=== PATIENT | female | born 1960 | race Caucasian/White ===

== ENCOUNTER 2016-06-17 09:57 | Day surgery (SDC) | payer BC ==
[2016-06-17 12:06] VITALS: RESP 20; TEMP 97.2; O2SAT 95
[2016-06-17 12:16] VITALS: BP 110/71; PULSE 75
== END 2016-06-17 12:25 | disposition home or self-care (01) ==
LOC: SURG 09:57
PROVIDERS: ATTEND Surgery
DX: Z12.11 Encounter for screening for malignant neoplasm of colon (principal); K57.30 Diverticulosis of large intestine without perforation or abscess without bleeding
CPT/HCPCS: 45378; J2001; J2704

== ENCOUNTER 2016-06-28 19:01 | Inpatient (IN) | payer BC ==
[2016-06-28] MEDS ORDERED: ALBUTEROL/IPRATROPIUM 1 VIAL SOL INH ONE (19:49)
[2016-06-28] MEDS ORDERED: ALBUTEROL/IPRATROPIUM 1 VIAL SOL ONE (19:59)
[2016-06-28 20:03] LABS: BASOPHILS % (AUTO) 1 % (0-3); EOSINOPHILS % (AUTO) 1 % (0-9); HEMATOCRIT 39 % (35-47); MEAN CORPUSCULAR HGB CONC 33.1 gm/dl (32.0-36.0); MEAN CORPUSCULAR VOLUME 88 fL (81-99); MONOCYTES % (AUTO) 7.8 % (0-12); NEUTROPHILS % (AUTO) 79.4 % (37-80)
[2016-06-28 20:07] LABS: CALCIUM 8.2 mg/dl (8.5-10.1)
[2016-06-28] MEDS ORDERED: RANITIDINE HCL 150 MG TAB PO SCH (21:00)
[2016-06-28] MEDS: SODIUM CHLORIDE 0.9% 1000ML 1,000 ML IV SCH (21:05)
[2016-06-28] MEDS ORDERED: IBUPROFEN 600 MG TAB ONE (21:07)
[2016-06-28] MEDS ORDERED: LEVOFLOXACIN 500 MG TAB ONE (21:07)
[2016-06-28] MEDS ORDERED: SOLUMEDROL 125 MG/2 ML 125 MG/2 ML PDS ONE (21:07)
[2016-06-28] MEDS: IBUPROFEN 600 MG TAB PO PRN (21:13)
[2016-06-28] MEDS: SOLUMEDROL 125 MG/2 ML 125 MG/2 ML PDS IV SCH (21:14)
[2016-06-28] MEDS: ALBUTEROL/IPRATROPIUM 1 VIAL SOL INH SCH (21:56)
[2016-06-28] MEDS: TRAZODONE HYDROCHLORIDE 50 MG TAB PO SCH (21:59)
[2016-06-28] MEDS: LEVOFLOXACIN 500 MG TAB PO SCH (22:00)
[2016-06-28] MEDS: MONTELUKAST SODIUM 10 MG TAB PO SCH (22:00)
[2016-06-28] MEDS: FAMOTIDINE 20 MG TAB PO SCH (22:03)
[2016-06-28] MEDS ORDERED: ACETAMINOPHEN 500 MG 500 MG TAB PO PRN (22:22)
[2016-06-28] MEDS ORDERED: ACETAMINOPHEN 500 MG 500 MG TAB ONE (22:46)
[2016-06-28] MEDS: DEXTROSE/SALINE 0.45/KCL 20MEQ 1,000 ML/1,000 ML SOL IV SCH (23:13)
[2016-06-29] MEDS: SODIUM CHLORIDE 0.9% 1000ML 1,000 ML IV SCH ×2 (01:46→01:47)
[2016-06-29] MEDS: ALBUTEROL/IPRATROPIUM 1 VIAL SOL INH SCH ×4 (03:45→21:19)
[2016-06-29] MEDS: SOLUMEDROL 125 MG/2 ML 125 MG/2 ML PDS IV SCH ×3 (05:27→21:48)
[2016-06-29] MEDS: IBUPROFEN 600 MG TAB PO PRN (05:30)
[2016-06-29] MEDS: DEXTROSE/SALINE 0.45/KCL 20MEQ 1,000 ML/1,000 ML SOL IV SCH (07:36)
[2016-06-29] MEDS: LEVOFLOXACIN 500 MG TAB PO SCH (09:35)
[2016-06-29] MEDS: SERTRALINE HYDROCHLORIDE 50 MG TAB PO SCH (09:36)
[2016-06-29] MEDS: SODIUM CHLORIDE 0.9% FLUSH 10 ML SOL IV SCH ×2 (12:24→21:17)
[2016-06-29] MEDS: TRAZODONE HYDROCHLORIDE 50 MG TAB PO SCH (21:18)
[2016-06-29] MEDS: MONTELUKAST SODIUM 10 MG TAB PO SCH (21:18)
[2016-06-29] MEDS: FAMOTIDINE 20 MG TAB PO SCH (21:18)
[2016-06-30] MEDS: ALBUTEROL/IPRATROPIUM 1 VIAL SOL INH SCH ×4 (03:22→20:49)
[2016-06-30] MEDS: SOLUMEDROL 125 MG/2 ML 125 MG/2 ML PDS IV SCH ×2 (03:23→05:00)
[2016-06-30] MEDS: SODIUM CHLORIDE 0.9% FLUSH 10 ML SOL IV SCH ×4 (03:23→20:55)
[2016-06-30] MEDS: IBUPROFEN 600 MG TAB PO PRN (06:49)
[2016-06-30] MEDS: SERTRALINE HYDROCHLORIDE 50 MG TAB PO SCH (08:47)
[2016-06-30] MEDS: PREDNISONE 20 MG TAB PO SCH (08:47)
[2016-06-30] MEDS: LEVOFLOXACIN 500 MG TAB PO SCH (08:48)
[2016-06-30] MEDS: FAMOTIDINE 20 MG TAB PO SCH (20:55)
[2016-06-30] MEDS: TRAZODONE HYDROCHLORIDE 50 MG TAB PO SCH (20:56)
[2016-06-30] MEDS: MONTELUKAST SODIUM 10 MG TAB PO SCH (20:56)
[2016-07-01] MEDS: ALBUTEROL/IPRATROPIUM 1 VIAL SOL INH SCH ×4 (02:52→20:05)
[2016-07-01] MEDS: SODIUM CHLORIDE 0.9% FLUSH 10 ML SOL IV SCH ×3 (03:32→20:02)
[2016-07-01 07:24] LABS: CALCIUM 8.5 mg/dl (8.5-10.1); POTASSIUM 3.8 mMol/L (3.5-5.1)
[2016-07-01] MEDS: ALBUTEROL HFA 60 PUFF/INHALER INH PRN (07:26)
[2016-07-01] MEDS: LEVOFLOXACIN 500 MG TAB PO SCH (09:13)
[2016-07-01] MEDS: SERTRALINE HYDROCHLORIDE 50 MG TAB PO SCH (09:14)
[2016-07-01] MEDS: PREDNISONE 20 MG TAB PO SCH (09:15)
[2016-07-01] MEDS: IBUPROFEN 600 MG TAB PO PRN (09:25)
[2016-07-01] MEDS: FAMOTIDINE 20 MG TAB PO SCH (20:03)
[2016-07-01] MEDS: TRAZODONE HYDROCHLORIDE 50 MG TAB PO SCH (20:03)
[2016-07-01] MEDS: MONTELUKAST SODIUM 10 MG TAB PO SCH (20:04)
[2016-07-02] MEDS: ALBUTEROL/IPRATROPIUM 1 VIAL SOL INH SCH ×2 (03:38→09:06)
[2016-07-02] MEDS: SODIUM CHLORIDE 0.9% FLUSH 10 ML SOL IV SCH ×2 (03:41→11:35)
[2016-07-02] MEDS: ALBUTEROL HFA 60 PUFF/INHALER INH PRN ×2 (07:07→11:05)
[2016-07-02 08:25] VITALS: BP 138/64; RESP 20; TEMP 97.2
[2016-07-02] MEDS: LEVOFLOXACIN 500 MG TAB PO SCH (08:25)
[2016-07-02] MEDS: SERTRALINE HYDROCHLORIDE 50 MG TAB PO SCH (08:26)
[2016-07-02] MEDS: PREDNISONE 20 MG TAB PO SCH (08:26)
[2016-07-02] MEDS: IBUPROFEN 600 MG TAB PO PRN (08:30)
[2016-07-02 09:19] VITALS: PULSE 83; O2SAT 96
[2016-07-02] MEDS ORDERED: PNEUMOCOCCAL VACCINE 0.5 ML SOL IM ONE (09:52)
[2016-07-02] MEDS ORDERED: INFLUENZA VIRUS VACCINE 0.5 ML SUS IM ONE (09:52)
== END 2016-07-02 12:35 | disposition home or self-care (01) | DRG 140 ==
LOC: ED 19:01 → UNDOADMOB 20:30 → ACUTE CARE 20:30 → UNDOADMOB 20:59 → INTOOBSV 20:59 → OBSVTOIN 20:59 → INTOOBSV 06-30 08:23 → UNDOADMOB 06-30 08:23 → ACUTE CARE 06-30 08:23 → OBSVTOIN 06-30 08:23 → UNDODISIN 07-02 12:35
PROVIDERS: ADMIT Family Medicine; ATTEND Family Medicine
DX: J44.1 Chronic obstructive pulmonary disease with (acute) exacerbation (principal); J06.9 Acute upper respiratory infection, unspecified
CPT/HCPCS: 36415; 71020; 80048; 82962; 85025; 87040; 90686; 90732; 94150; 94640; 94664; 94762; 99219; 99283; J2930; J7620; G0008

== ENCOUNTER 2016-08-17 14:18 | Inpatient (IN) | payer BC ==
[2016-08-17] MEDS: ALBUTEROL/IPRATROPIUM 1 VIAL SOL INH SCH ×3 (15:00→21:14)
[2016-08-17] MEDS: SODIUM CHLORIDE 0.9% FLUSH 10 ML SOL IV SCH ×2 (15:07→19:09)
[2016-08-17] MEDS: SOLUMEDROL 125 MG/2 ML 125 MG/2 ML PDS IV SCH (19:08)
[2016-08-17] MEDS: MONTELUKAST SODIUM 10 MG TAB PO SCH (21:05)
[2016-08-17] MEDS: TRAZODONE HYDROCHLORIDE 50 MG TAB PO SCH (21:05)
[2016-08-17] MEDS: ATORVASTATIN 10 MG TAB PO SCH (21:05)
[2016-08-17] MEDS: OMEPRAZOLE 20 MG CAPSULE PO SCH (21:09)
[2016-08-17] MEDS: IBUPROFEN 600 MG TAB PO PRN (21:25)
[2016-08-18] MEDS: SOLUMEDROL 125 MG/2 ML 125 MG/2 ML PDS IV SCH ×4 (00:24→19:09)
[2016-08-18] MEDS: SODIUM CHLORIDE 0.9% FLUSH 10 ML SOL IV SCH ×6 (00:24→23:01)
[2016-08-18] MEDS: ALBUTEROL NEB SOL 2.5MG/3ML 1 VIAL SOL NEB PRN ×3 (00:27→15:43)
[2016-08-18] MEDS: SERTRALINE HYDROCHLORIDE 50 MG TAB PO SCH (08:25)
[2016-08-18] MEDS: MULTIVITAMIN2 1 EA TAB PO SCH (08:25)
[2016-08-18] MEDS: ALBUTEROL/IPRATROPIUM 1 VIAL SOL INH SCH ×4 (08:53→21:05)
[2016-08-18] MEDS ORDERED: TIOTROPIUM BROMIDE 18 MCG CAP INH SCH (09:00)
[2016-08-18] MEDS: PANTOPRAZOLE SODIUM 40 MG ECT PO SCH ×2 (09:43→20:56)
[2016-08-18] MEDS: IBUPROFEN 600 MG TAB PO PRN ×2 (09:45→21:21)
[2016-08-18] MEDS: OMEPRAZOLE 20 MG CAPSULE PO SCH (11:45)
[2016-08-18] MEDS: MONTELUKAST SODIUM 10 MG TAB PO SCH (20:57)
[2016-08-18] MEDS: TRAZODONE HYDROCHLORIDE 50 MG TAB PO SCH (20:57)
[2016-08-18] MEDS: ATORVASTATIN 10 MG TAB PO SCH (20:57)
[2016-08-19] MEDS: SOLUMEDROL 125 MG/2 ML 125 MG/2 ML PDS IV SCH ×4 (00:24→20:57)
[2016-08-19] MEDS: SODIUM CHLORIDE 0.9% FLUSH 10 ML SOL IV SCH ×5 (00:24→23:43)
[2016-08-19] MEDS: ALBUTEROL NEB SOL 2.5MG/3ML 1 VIAL SOL NEB PRN (03:39)
[2016-08-19 07:17] LABS: BASOPHILS % (AUTO) 0 % (0-3); EOSINOPHILS % (AUTO) 0 % (0-9); HEMATOCRIT 35 % (35-47); MEAN CORPUSCULAR HGB CONC 34.9 gm/dl (32.0-36.0); MEAN CORPUSCULAR VOLUME 85 fL (81-99); MONOCYTES % (AUTO) 6.7 % (0-12); NEUTROPHILS % (AUTO) 87.4 % (37-80)
[2016-08-19 07:22] LABS: ALBUMIN 2.7 gm/dl (3.4-5.0); CALCIUM 9.2 mg/dl (8.5-10.1); POTASSIUM 4.4 mMol/L (3.5-5.1)
[2016-08-19] MEDS: IBUPROFEN 600 MG TAB PO PRN ×3 (07:30→23:30)
[2016-08-19] MEDS: ALBUTEROL/IPRATROPIUM 1 VIAL SOL INH SCH ×4 (09:02→21:01)
[2016-08-19] MEDS: SERTRALINE HYDROCHLORIDE 50 MG TAB PO SCH (09:06)
[2016-08-19] MEDS: PANTOPRAZOLE SODIUM 40 MG ECT PO SCH ×2 (09:06→20:56)
[2016-08-19] MEDS: MULTIVITAMIN2 1 EA TAB PO SCH (09:06)
[2016-08-19] MEDS: LEVOFLOXACIN 500 MG TAB PO SCH (10:43)
[2016-08-19] MEDS: DM/GUAIFENESIN SYRUP 10 ML SYRP PO PRN ×3 (10:43→23:28)
[2016-08-19] MEDS: TRAZODONE HYDROCHLORIDE 50 MG TAB PO SCH (20:56)
[2016-08-19] MEDS: MONTELUKAST SODIUM 10 MG TAB PO SCH (20:56)
[2016-08-19] MEDS: ATORVASTATIN 10 MG TAB PO SCH (20:56)
[2016-08-20] MEDS: SODIUM CHLORIDE 0.9% FLUSH 10 ML SOL IV SCH ×4 (05:47→23:02)
[2016-08-20] MEDS: DM/GUAIFENESIN SYRUP 10 ML SYRP PO PRN ×2 (07:48→18:20)
[2016-08-20] MEDS: IBUPROFEN 600 MG TAB PO PRN ×2 (07:48→18:20)
[2016-08-20] MEDS: ALBUTEROL/IPRATROPIUM 1 VIAL SOL INH SCH ×4 (08:04→20:07)
[2016-08-20] MEDS: SERTRALINE HYDROCHLORIDE 50 MG TAB PO SCH (10:00)
[2016-08-20] MEDS: MULTIVITAMIN2 1 EA TAB PO SCH (10:00)
[2016-08-20] MEDS: LEVOFLOXACIN 500 MG TAB PO SCH (10:00)
[2016-08-20] MEDS: PANTOPRAZOLE SODIUM 40 MG ECT PO SCH ×2 (10:00→20:14)
[2016-08-20] MEDS: SOLUMEDROL 125 MG/2 ML 125 MG/2 ML PDS IV SCH ×2 (10:06→21:14)
[2016-08-20] MEDS: TRAZODONE HYDROCHLORIDE 50 MG TAB PO SCH (20:13)
[2016-08-20] MEDS: MONTELUKAST SODIUM 10 MG TAB PO SCH (20:14)
[2016-08-20] MEDS: ATORVASTATIN 10 MG TAB PO SCH (20:14)
[2016-08-21] MEDS: DM/GUAIFENESIN SYRUP 10 ML SYRP PO PRN ×2 (00:02→20:41)
[2016-08-21] MEDS: SODIUM CHLORIDE 0.9% FLUSH 10 ML SOL IV SCH ×3 (05:22→13:42)
[2016-08-21] MEDS: ALBUTEROL/IPRATROPIUM 1 VIAL SOL INH SCH ×4 (08:02→20:31)
[2016-08-21] MEDS: LEVOFLOXACIN 500 MG TAB PO SCH (09:08)
[2016-08-21] MEDS: PANTOPRAZOLE SODIUM 40 MG ECT PO SCH ×2 (09:08→20:31)
[2016-08-21] MEDS: MULTIVITAMIN2 1 EA TAB PO SCH (09:09)
[2016-08-21] MEDS: SERTRALINE HYDROCHLORIDE 50 MG TAB PO SCH (09:09)
[2016-08-21] MEDS: IBUPROFEN 600 MG TAB PO PRN (09:10)
[2016-08-21] MEDS: PREDNISONE 20 MG TAB PO SCH (10:38)
[2016-08-21] MEDS: MONTELUKAST SODIUM 10 MG TAB PO SCH (20:30)
[2016-08-21] MEDS: ATORVASTATIN 10 MG TAB PO SCH (20:30)
[2016-08-21] MEDS: TRAZODONE HYDROCHLORIDE 50 MG TAB PO SCH (20:30)
[2016-08-22] MEDS: SODIUM CHLORIDE 0.9% FLUSH 10 ML SOL IV SCH ×2 (00:01→05:38)
[2016-08-22] MEDS: ALBUTEROL NEB SOL 2.5MG/3ML 1 VIAL SOL NEB PRN (05:04)
[2016-08-22 07:56] VITALS: BP 143/81; TEMP 97.3
[2016-08-22] MEDS: IBUPROFEN 600 MG TAB PO PRN (07:58)
[2016-08-22] MEDS: ALBUTEROL/IPRATROPIUM 1 VIAL SOL INH SCH (08:02)
[2016-08-22] MEDS: LEVOFLOXACIN 500 MG TAB PO SCH (08:03)
[2016-08-22] MEDS: PREDNISONE 20 MG TAB PO SCH (08:03)
[2016-08-22] MEDS: PANTOPRAZOLE SODIUM 40 MG ECT PO SCH (08:03)
[2016-08-22] MEDS: SERTRALINE HYDROCHLORIDE 50 MG TAB PO SCH (08:04)
[2016-08-22] MEDS: MULTIVITAMIN2 1 EA TAB PO SCH (08:04)
[2016-08-22 10:09] VITALS: PULSE 85; RESP 22; O2SAT 95
== END 2016-08-22 13:10 | disposition home or self-care (01) | DRG 140 ==
LOC: ACUTE CARE 14:18
PROVIDERS: ADMIT Family Medicine; ATTEND Family Medicine
DX: J44.1 Chronic obstructive pulmonary disease with (acute) exacerbation (principal); Z87.891 Personal history of nicotine dependence
CPT/HCPCS: 36415; 80053; 85025; 87070; 87205; 94150; 94640; 94760; 94761; 99238; J2930; J7603; J7620

== ENCOUNTER 2016-11-25 18:27 | Emergency (ER) | payer OTHER, BC ==
[2016-11-25] MEDS ORDERED: SODIUM CHLORIDE 0.9% 1000ML 1,000 ML IV ONE (18:36)
[2016-11-25 19:03] LABS: BASOPHILS % (AUTO) 1 % (0-3); EOSINOPHILS % (AUTO) 2 % (0-9); HEMATOCRIT 39 % (35-47); MEAN CORPUSCULAR VOLUME 87 fL (81-99); MONOCYTES % (AUTO) 5.5 % (0-12); NEUTROPHILS % (AUTO) 71.3 % (37-80)
[2016-11-25 19:17] VITALS: TEMP 98.8
[2016-11-25 19:30] LABS: ALBUMIN 3.3 gm/dl (3.4-5.0); ALT 24 IU/L (14-63); CALCIUM 8.5 mg/dl (8.5-10.1); GLOM FILT RATE 88 mL/min (>60); POTASSIUM 4.1 mMol/L (3.5-5.1); SODIUM 143 mMol/L (136-145)
[2016-11-25 20:26] LABS: APPEARANCE,URINE Clear; BILIRUBIN,URINE NEGATIVE (NEGATIVE); COLOR,URINE Yellow; GLUCOSE, URINE (UA) NEGATIVE (NEGATIVE); KETONES,URINE NEGATIVE (NEGATIVE); LEUKOCYTE ESTERASE ,URINE NEGATIVE (NEGATIVE); NITRATE,URINE NEGATIVE (NEGATIVE); OCCULT BLOOD,URINE NEGATIVE (NEG-TRACE); UROBILINOGEN,URINE 0.2 (0.2-1.0 EU)
[2016-11-25 20:41] LABS: RBC,URINE NEG (0-3AV/HPF); WBC,URINE 0-1 (0-5AV/HPF)
[2016-11-25 21:31] VITALS: BP 126/66; PULSE 78; RESP 13; O2SAT 91
== END 2016-11-25 21:33 | disposition home or self-care (01) | DRG 312 ==
LOC: ED 18:27
DX: R55 Syncope and collapse (principal); R35.0 Frequency of micturition
CPT/HCPCS: 36415; 80053; 81001; 84484; 85025; 93005; 99285

== ENCOUNTER 2017-03-18 15:44 | Inpatient (IN) | payer BC ==
[2017-03-18] MEDS ORDERED: ALBUTEROL/IPRATROPIUM 1 VIAL SOL INH ONE ×2 (16:34→16:35)
[2017-03-18] MEDS ORDERED: ALBUTEROL/IPRATROPIUM 1 VIAL SOL ONE ×2 (16:35→17:37)
[2017-03-18] MEDS ORDERED: SOLUMEDROL 125 MG/2 ML 125 MG/2 ML PDS IV ONE (16:36)
[2017-03-18] MEDS ORDERED: GUAIFENESIN 200 MG/10 ML SOL PO ONE (16:38)
[2017-03-18] MEDS ORDERED: AZITHROMYCIN 500 MG PDS 500 MG in SODIUM CHLORIDE 0.9% 500 ML 500 ML IV SCH (16:45)
[2017-03-18 16:51] LABS: BASOPHILS % (AUTO) 1 % (0-3); EOSINOPHILS % (AUTO) 4 % (0-9); HEMATOCRIT 39 % (35-47); MEAN CORPUSCULAR HGB CONC 32.9 gm/dl (32.0-36.0); MEAN CORPUSCULAR VOLUME 89 fL (81-99); MONOCYTES % (AUTO) 5.4 % (0-12)
[2017-03-18] MEDS ORDERED: GUAIFENESIN 200 MG/10 ML SOL ONE (16:54)
[2017-03-18] MEDS ORDERED: SOLUMEDROL 125 MG/2 ML 125 MG/2 ML PDS ONE (16:54)
[2017-03-18] MEDS ORDERED: AZITHROMYCIN 500 MG PDS IV ONE (16:59)
[2017-03-18] MEDS ORDERED: ALBUTEROL NEB SOL 2.5MG/3ML 1 VIAL SOL NEB PRN (19:54)
[2017-03-18] MEDS ORDERED: ACETAMINOPHEN 325 MG PO PRN (19:55)
[2017-03-18] MEDS ORDERED: CEFUROXIME 250 MG/5 ML PDR PO SCH (21:00)
[2017-03-18] MEDS: SOLUMEDROL 125 MG/2 ML 125 MG/2 ML PDS IV SCH (21:22)
[2017-03-18] MEDS: TRAZODONE HYDROCHLORIDE 50 MG TAB PO SCH (21:24)
[2017-03-18] MEDS: ATORVASTATIN 10 MG TAB PO SCH (21:28)
[2017-03-18] MEDS: MONTELUKAST SODIUM 10 MG TAB PO SCH (21:29)
[2017-03-18] MEDS: ALBUTEROL/IPRATROPIUM 1 VIAL SOL INH SCH (21:32)
[2017-03-18] MEDS: IBUPROFEN 600 MG TAB PO PRN (21:35)
[2017-03-19] MEDS: ALBUTEROL/IPRATROPIUM 1 VIAL SOL INH SCH ×4 (02:32→20:35)
[2017-03-19] MEDS: SODIUM CHLORIDE 0.9% FLUSH 10 ML SOL IV SCH ×5 (02:35→20:44)
[2017-03-19] MEDS: SOLUMEDROL 125 MG/2 ML 125 MG/2 ML PDS IV SCH ×4 (02:35→20:33)
[2017-03-19] MEDS: IBUPROFEN 600 MG TAB PO PRN ×3 (04:27→17:17)
[2017-03-19] MEDS: AZITHROMYCIN 250 MG TAB PO SCH (08:38)
[2017-03-19] MEDS: FUROSEMIDE 20 MG TAB PO SCH (08:38)
[2017-03-19] MEDS: SERTRALINE HYDROCHLORIDE 50 MG TAB PO SCH (08:39)
[2017-03-19] MEDS: ENOXAPARIN 40 MG SOL SC SCH (08:39)
[2017-03-19] MEDS: AMLODIPINE 5 MG TAB PO SCH (08:39)
[2017-03-19] MEDS ORDERED: OMEPRAZOLE 20 MG CAPSULE PO SCH (09:00)
[2017-03-19] MEDS: PANTOPRAZOLE SODIUM 40 MG ECT PO SCH (09:43)
[2017-03-19] MEDS: CEFPROZIL 250 MG/5 ML SUSP.RECON PO SCH ×2 (09:48→20:33)
[2017-03-19] MEDS ORDERED: SODIUM CHLORIDE 0.9% FLUSH 10 ML SOL IV PRN (18:33)
[2017-03-19] MEDS: MONTELUKAST SODIUM 10 MG TAB PO SCH (20:36)
[2017-03-19] MEDS: TRAZODONE HYDROCHLORIDE 50 MG TAB PO SCH (20:37)
[2017-03-19] MEDS: ATORVASTATIN 10 MG TAB PO SCH (20:38)
[2017-03-20] MEDS: SODIUM CHLORIDE 0.9% FLUSH 10 ML SOL IV SCH ×3 (01:49→13:22)
[2017-03-20] MEDS: SOLUMEDROL 125 MG/2 ML 125 MG/2 ML PDS IV SCH ×2 (01:49→09:57)
[2017-03-20] MEDS: ALBUTEROL/IPRATROPIUM 1 VIAL SOL INH SCH ×3 (02:08→15:59)
[2017-03-20] MEDS: IBUPROFEN 600 MG TAB PO PRN (05:38)
[2017-03-20 07:31] LABS: BASOPHILS % (AUTO) 0 % (0-3); EOSINOPHILS % (AUTO) 0 % (0-9); HEMATOCRIT 40 % (35-47); MEAN CORPUSCULAR HGB CONC 32.4 gm/dl (32.0-36.0); MEAN CORPUSCULAR VOLUME 90 fL (81-99); MONOCYTES % (AUTO) 2.1 % (0-12); NEUTROPHILS % (AUTO) 94.6 % (37-80)
[2017-03-20 07:38] LABS: CALCIUM 8.7 mg/dl (8.5-10.1); POTASSIUM 4.3 mMol/L (3.5-5.1)
[2017-03-20] MEDS: FUROSEMIDE 20 MG TAB PO SCH (09:35)
[2017-03-20] MEDS: AMLODIPINE 5 MG TAB PO SCH (09:36)
[2017-03-20] MEDS: AZITHROMYCIN 250 MG TAB PO SCH (09:37)
[2017-03-20] MEDS: PANTOPRAZOLE SODIUM 40 MG ECT PO SCH (09:37)
[2017-03-20] MEDS: SERTRALINE HYDROCHLORIDE 50 MG TAB PO SCH (09:39)
[2017-03-20] MEDS ORDERED: ALUMINUM/MAGNESIUM 30 ML SUS PO PRN (09:43)
[2017-03-20] MEDS: ENOXAPARIN 40 MG SOL SC SCH (09:54)
[2017-03-20] MEDS: CEFPROZIL 250 MG/5 ML SUSP.RECON PO SCH (09:56)
[2017-03-20 15:59] VITALS: RESP 21
[2017-03-20 16:53] VITALS: PULSE 82; O2SAT 97
[2017-03-20 17:02] VITALS: BP 155/78; TEMP 97.7
[2017-03-21] MEDS ORDERED: PREDNISONE 20 MG TAB PO SCH (13:00)
== END 2017-03-20 16:30 | disposition home or self-care (01) | DRG 140 ==
LOC: ED 15:44 → ACUTE CARE 18:57 → UNDOADMIN 18:57 → ACUTE CARE 19:10
PROVIDERS: ADMIT Family Medicine; ATTEND Family Medicine
DX: J44.1 Chronic obstructive pulmonary disease with (acute) exacerbation (principal); J18.9 Pneumonia, unspecified organism; J44.0 Chronic obstructive pulmonary disease with (acute) lower respiratory infection; I10 Essential (primary) hypertension; G47.33 Obstructive sleep apnea (adult) (pediatric)
CPT/HCPCS: 36415; 71020; 80048; 85025; 87804; 94640; 94664; 99285; J0456; J1650; J2930; J7603; J7620

== ENCOUNTER 2017-05-17 12:40 | Inpatient (IN) | payer BC ==
[2017-05-17] MEDS ORDERED: DEXAMETHASONE 20 MG/5 ML (4 MG/ML SOL) IV ONE (12:49)
[2017-05-17] MEDS ORDERED: DEXAMETHASONE 20 MG/5 ML (4 MG/ML SOL) ONE (12:53)
[2017-05-17] MEDS ORDERED: ALBUTEROL/IPRATROPIUM 1 VIAL SOL INH ONE (12:58)
[2017-05-17] MEDS ORDERED: ALBUTEROL/IPRATROPIUM 1 VIAL SOL ONE (12:58)
[2017-05-17 13:07] LABS: ABG PH 7.41 (7.35-7.45)
[2017-05-17 13:10] LABS: BASOPHILS % (AUTO) 2 % (0-3); EOSINOPHILS % (AUTO) 3 % (0-9); HEMATOCRIT 36 % (35-47); MEAN CORPUSCULAR HGB CONC 34.4 gm/dl (32.0-36.0); MEAN CORPUSCULAR VOLUME 86 fL (81-99); MONOCYTES % (AUTO) 4.7 % (0-12); NEUTROPHILS % (AUTO) 70.7 % (37-80)
[2017-05-17 13:28] LABS: ALBUMIN 3.4 gm/dl (3.4-5.0); CALCIUM 8.4 mg/dl (8.5-10.1); POTASSIUM 3.7 mMol/L (3.5-5.1)
[2017-05-17] MEDS: ALBUTEROL/IPRATROPIUM 1 VIAL SOL INH SCH ×2 (17:30→23:02)
[2017-05-17] MEDS ORDERED: AZITHROMYCIN 250 MG TAB PO ONE (18:25)
[2017-05-17] MEDS ORDERED: ALBUTEROL/IPRATROPIUM 1 VIAL SOL INH SCH (18:30)
[2017-05-17] MEDS: SOLUMEDROL 125 MG/2 ML 125 MG/2 ML PDS IV SCH (18:56)
[2017-05-17] MEDS: ALBUTEROL NEB SOL 2.5MG/3ML 1 VIAL SOL NEB SCH ×2 (18:56→21:52)
[2017-05-17] MEDS ORDERED: Non-Formulary Medication MISC (Budesonide/Formoterol 160/4.5 2 PUFF) INH SCH (21:00)
[2017-05-17] MEDS: TRAZODONE HYDROCHLORIDE 50 MG TAB PO SCH (21:49)
[2017-05-17] MEDS: ATORVASTATIN 10 MG TAB PO SCH (21:49)
[2017-05-17] MEDS: POTASSIUM CHLORIDE 10 MEQ TER PO SCH (21:49)
[2017-05-17] MEDS: HYDRALAZINE HYDROCHLORIDE 10 MG TAB PO SCH (21:49)
[2017-05-18] MEDS: SOLUMEDROL 125 MG/2 ML 125 MG/2 ML PDS IV SCH ×2 (00:31→06:14)
[2017-05-18] MEDS: ALBUTEROL NEB SOL 2.5MG/3ML 1 VIAL SOL NEB SCH (03:07)
[2017-05-18] MEDS: ALBUTEROL/IPRATROPIUM 1 VIAL SOL INH SCH ×4 (05:53→22:49)
[2017-05-18 07:49] LABS: BASOPHILS % (AUTO) 0 % (0-3); EOSINOPHILS % (AUTO) 0 % (0-9); HEMATOCRIT 36 % (35-47); MEAN CORPUSCULAR HGB CONC 33.1 gm/dl (32.0-36.0); MEAN CORPUSCULAR VOLUME 86 fL (81-99); MONOCYTES % (AUTO) 0.8 % (0-12); NEUTROPHILS % (AUTO) 91.4 % (37-80)
[2017-05-18 07:54] LABS: CALCIUM 8.4 mg/dl (8.5-10.1); POTASSIUM 4.2 mMol/L (3.5-5.1)
[2017-05-18] MEDS: POTASSIUM CHLORIDE 10 MEQ TER PO SCH ×2 (08:55→20:38)
[2017-05-18] MEDS: HYDRALAZINE HYDROCHLORIDE 10 MG TAB PO SCH ×2 (08:55→20:37)
[2017-05-18] MEDS: SERTRALINE HYDROCHLORIDE 50 MG TAB PO SCH (08:56)
[2017-05-18] MEDS: AZITHROMYCIN 250 MG TAB PO SCH ×2 (08:56→20:38)
[2017-05-18] MEDS: MULTIVITAMIN2 1 EA TAB PO SCH (08:56)
[2017-05-18] MEDS: MONTELUKAST SODIUM 10 MG TAB PO SCH (08:56)
[2017-05-18] MEDS: ENOXAPARIN 40 MG SOL SC SCH (08:57)
[2017-05-18] MEDS: TIOTROPIUM BROMIDE 18 MCG CAP INH SCH (08:58)
[2017-05-18] MEDS: FUROSEMIDE 40 MG TAB PO SCH ×2 (08:59→11:52)
[2017-05-18] MEDS ORDERED: FUROSEMIDE 20 MG TAB PO SCH (09:00)
[2017-05-18] MEDS: BUDESONIDE/FORMOTEROL 160/4.5 AER INH SCH ×2 (09:00→20:50)
[2017-05-18] MEDS ORDERED: OMEPRAZOLE 20 MG CAPSULE PO SCH (09:00)
[2017-05-18] MEDS: PANTOPRAZOLE SODIUM 40 MG ECT PO SCH (09:04)
[2017-05-18] MEDS: PREDNISONE 20 MG TAB PO SCH (09:04)
[2017-05-18] MEDS: ACETAMINOPHEN 325 MG PO PRN ×2 (10:20→20:57)
[2017-05-18] MEDS: NOVOLOG FLEXPEN SC SCH ×3 (11:59→20:35)
[2017-05-18] MEDS: ALBUTEROL NEB SOL 2.5MG/3ML 1 VIAL SOL NEB PRN (14:29)
[2017-05-18] MEDS: TRAZODONE HYDROCHLORIDE 50 MG TAB PO SCH (20:37)
[2017-05-18] MEDS: ATORVASTATIN 10 MG TAB PO SCH (20:40)
[2017-05-19] MEDS: ALBUTEROL/IPRATROPIUM 1 VIAL SOL INH SCH ×2 (05:38→11:38)
[2017-05-19] MEDS: NOVOLOG FLEXPEN SC SCH ×2 (07:34→12:04)
[2017-05-19 07:38] LABS: BASOPHILS % (AUTO) 0 % (0-3); EOSINOPHILS % (AUTO) 0 % (0-9); HEMATOCRIT 35 % (35-47); MEAN CORPUSCULAR HGB CONC 34.3 gm/dl (32.0-36.0); MEAN CORPUSCULAR VOLUME 86 fL (81-99); MONOCYTES % (AUTO) 6.3 % (0-12); NEUTROPHILS % (AUTO) 81.2 % (37-80)
[2017-05-19 07:39] LABS: CALCIUM 8.5 mg/dl (8.5-10.1)
[2017-05-19 08:00] VITALS: BP 152/68; TEMP 96.8
[2017-05-19] MEDS: POTASSIUM CHLORIDE 10 MEQ TER PO SCH (08:17)
[2017-05-19] MEDS: HYDRALAZINE HYDROCHLORIDE 10 MG TAB PO SCH (08:17)
[2017-05-19] MEDS: FUROSEMIDE 40 MG TAB PO SCH ×2 (08:18→11:43)
[2017-05-19] MEDS: PREDNISONE 20 MG TAB PO SCH (08:18)
[2017-05-19] MEDS: PANTOPRAZOLE SODIUM 40 MG ECT PO SCH (08:20)
[2017-05-19] MEDS: MONTELUKAST SODIUM 10 MG TAB PO SCH (08:20)
[2017-05-19] MEDS: TIOTROPIUM BROMIDE 18 MCG CAP INH SCH (08:21)
[2017-05-19] MEDS: AZITHROMYCIN 250 MG TAB PO SCH (08:22)
[2017-05-19] MEDS: MULTIVITAMIN2 1 EA TAB PO SCH (08:22)
[2017-05-19] MEDS: BUDESONIDE/FORMOTEROL 160/4.5 AER INH SCH (08:22)
[2017-05-19] MEDS: SERTRALINE HYDROCHLORIDE 50 MG TAB PO SCH (08:23)
[2017-05-19] MEDS: ENOXAPARIN 40 MG SOL SC SCH (08:36)
[2017-05-19] MEDS: ALBUTEROL NEB SOL 2.5MG/3ML 1 VIAL SOL NEB PRN (09:20)
[2017-05-19 13:17] VITALS: PULSE 85; RESP 18; O2SAT 95
== END 2017-05-19 13:10 | disposition home or self-care (01) | DRG 140 ==
LOC: ED 12:40 → ACUTE CARE 14:48 → UNDOADMIN 14:48 → ACUTE CARE 15:00
PROVIDERS: ADMIT Family Medicine; ATTEND Family Medicine
DX: J44.1 Chronic obstructive pulmonary disease with (acute) exacerbation (principal); J45.41 Moderate persistent asthma with (acute) exacerbation; I10 Essential (primary) hypertension; G47.33 Obstructive sleep apnea (adult) (pediatric); E66.01 Morbid (severe) obesity due to excess calories; Z68.43 Body mass index [BMI] 50.0-59.9, adult; R60.0 Localized edema
CPT/HCPCS: 36415; 36600; 71046; 71250; 80048; 80053; 82803; 82962; 85025; 87804; 93306; 94150; 99284; J1100; J1650; J2930; J7603; J7620; A9270; A9270-GY; J1815

== ENCOUNTER 2017-08-29 06:19 | Emergency (ER) | payer BC ==
[2017-08-29 06:34] VITALS: RESP 22
[2017-08-29] MEDS ORDERED: KETOROLAC TROMETHAMINE 30 MG/ML SOL IM ONE (08:15)
[2017-08-29] MEDS ORDERED: KETOROLAC TROMETHAMINE 30 MG/ML SOL ONE (08:16)
[2017-08-29 08:38] VITALS: BP 160/70; PULSE 79; TEMP 97.6; O2SAT 90
== END 2017-08-29 08:27 | disposition home or self-care (01) ==
LOC: ED 06:19
DX: S22.31XA Fracture of one rib, right side, initial encounter for closed fracture (principal); W01.0XXA Fall on same level from slipping, tripping and stumbling without subsequent striking against object, initial encounter; R04.0 Epistaxis
CPT/HCPCS: 71101; 96372; 99283; J1885

== ENCOUNTER 2018-01-24 13:56 | Inpatient (IN) | payer BC ==
[2018-01-24] MEDS ORDERED: ALBUTEROL/IPRATROPIUM 1 VIAL SOL INH ONE (14:23)
[2018-01-24] MEDS ORDERED: SODIUM CHLORIDE 0.9% 1000ML 1,000 ML IV ONE (14:26)
[2018-01-24] MEDS ORDERED: SOLUMEDROL 125 MG/2 ML 125 MG/2 ML PDS IV ONE (14:27)
[2018-01-24] MEDS ORDERED: ALBUTEROL/IPRATROPIUM 1 VIAL SOL ONE (14:51)
[2018-01-24 14:58] LABS: BASOPHILS % (AUTO) 1 % (0-3); EOSINOPHILS % (AUTO) 2 % (0-9); HEMATOCRIT 37 % (35-47); HEMOGLOBIN 11.7 gm/dl (12.0-15.5); LYMPHOCYTES % (AUTO) 16.8 % (10-50); MEAN CORPUSCULAR HEMOGLOBIN 27.5 pg (27.0-32.0); MEAN CORPUSCULAR HGB CONC 31.3 gm/dl (32.0-36.0); MEAN CORPUSCULAR VOLUME 88 fL (81-99); MONOCYTES % (AUTO) 5.3 % (0-12); NEUTROPHILS % (AUTO) 74.3 % (37-80)
[2018-01-24] MEDS ORDERED: SOLUMEDROL 125 MG/2 ML 125 MG/2 ML PDS ONE (15:01)
[2018-01-24 15:07] LABS: ALBUMIN 3.1 gm/dl (3.4-5.0); BILIRUBIN,TOTAL 0.5 mg/dl (0.2-1.0); CALCIUM 8.4 mg/dl (8.5-10.1); CARBON DIOXIDE 32.9 mEq/L (21-32); CREATININE 0.73 mg/dl (0.60-1.00); POTASSIUM 3.4 mMol/L (3.5-5.1); TOTAL PROTEIN 6.8 gm/dl (6.4-8.2)
[2018-01-24 15:14] LABS: LACTIC ACID 0.8 mMol/L (0.0-2.0)
[2018-01-24] MEDS ORDERED: ALBUTEROL NEB SOL 2.5MG/3ML 1 VIAL SOL ONE (17:21)
[2018-01-24] MEDS ORDERED: ALBUTEROL NEB SOL 2.5MG/3ML 1 VIAL SOL NEB ONE (17:30)
[2018-01-24] MEDS ORDERED: AZITHROMYCIN 500 MG PDS IV ONE ×2 (18:04→18:35)
[2018-01-24] MEDS ORDERED: POTASSIUM CHLORIDE 10 MEQ TER PO ONE (18:08)
[2018-01-24] MEDS ORDERED: POTASSIUM CHLORIDE 10 MEQ TER ONE (18:49)
[2018-01-24] MEDS ORDERED: ALBUTEROL NEB SOL 2.5MG/3ML 1 VIAL SOL NEB SCH (20:30)
[2018-01-24] MEDS: SODIUM CHLORIDE 0.9% FLUSH 10 ML SOL IV SCH ×2 (21:00→23:30)
[2018-01-24] MEDS ORDERED: BUDESONIDE INH SCH (21:00)
[2018-01-24] MEDS: ALBUTEROL/IPRATROPIUM 1 VIAL SOL INH SCH (21:02)
[2018-01-24] MEDS: HYDRALAZINE HYDROCHLORIDE 10 MG TAB PO SCH (21:57)
[2018-01-24] MEDS: ATORVASTATIN 10 MG TAB PO SCH (21:59)
[2018-01-24] MEDS: TRAZODONE HYDROCHLORIDE 50 MG TAB PO SCH (21:59)
[2018-01-24] MEDS: MONTELUKAST SODIUM 10 MG TAB PO SCH (22:00)
[2018-01-24] MEDS: BUDESONIDE 0.5 MG/2 ML AMPUL.NEB INH SCH (22:11)
[2018-01-24] MEDS: ALBUTEROL NEB SOL 2.5MG/3ML 1 VIAL SOL NEB PRN (22:40)
[2018-01-24] MEDS: SOLUMEDROL 125 MG/2 ML 125 MG/2 ML PDS IV SCH (23:06)
[2018-01-25] MEDS ORDERED: PATIENT EDUCATION 1 MISC PRN (00:39)
[2018-01-25] MEDS: BUDESONIDE 0.5 MG/2 ML AMPUL.NEB INH SCH ×3 (00:50→20:49)
[2018-01-25] MEDS: ALBUTEROL/IPRATROPIUM 1 VIAL SOL INH SCH ×4 (03:17→20:48)
[2018-01-25] MEDS: SODIUM CHLORIDE 0.9% FLUSH 10 ML SOL IV SCH ×7 (03:32→17:13)
[2018-01-25] MEDS: SOLUMEDROL 125 MG/2 ML 125 MG/2 ML PDS IV SCH ×4 (05:22→22:56)
[2018-01-25] MEDS ORDERED: POTASSIUM CHLORIDE 10 MEQ TER PO ONE ×3 (05:30→20:29)
[2018-01-25 07:46] LABS: CALCIUM 8.5 mg/dl (8.5-10.1); CARBON DIOXIDE 29.7 mEq/L (21-32); CREATININE 0.76 mg/dl (0.60-1.00); POTASSIUM 3.5 mMol/L (3.5-5.1)
[2018-01-25 08:15] LABS: BASOPHILS % (AUTO) 0 % (0-3); EOSINOPHILS % (AUTO) 0 % (0-9); HEMATOCRIT 37 % (35-47); HEMOGLOBIN 11.7 gm/dl (12.0-15.5); LYMPHOCYTES % (AUTO) 7.1 % (10-50); MEAN CORPUSCULAR HEMOGLOBIN 27.9 pg (27.0-32.0); MEAN CORPUSCULAR HGB CONC 31.7 gm/dl (32.0-36.0); MEAN CORPUSCULAR VOLUME 88 fL (81-99); MONOCYTES % (AUTO) 0.5 % (0-12); NEUTROPHILS % (AUTO) 92.1 % (37-80)
[2018-01-25] MEDS ORDERED: FUROSEMIDE 40 MG TAB PO ONE (08:32)
[2018-01-25] MEDS ORDERED: GLYCERIN NAS PRN (08:33)
[2018-01-25] MEDS ORDERED: ALOE VERA NAS PRN (08:33)
[2018-01-25] MEDS: HYDRALAZINE HYDROCHLORIDE 10 MG TAB PO SCH ×2 (08:57→20:49)
[2018-01-25] MEDS: LOSARTAN POTASSIUM 50 MG TAB PO SCH (08:59)
[2018-01-25] MEDS: SERTRALINE HYDROCHLORIDE 50 MG TAB PO SCH (09:00)
[2018-01-25] MEDS ORDERED: OMEPRAZOLE 20 MG CAPSULE PO SCH (09:00)
[2018-01-25] MEDS ORDERED: FUROSEMIDE 40 MG SOL IV SCH (09:00)
[2018-01-25] MEDS ORDERED: FUROSEMIDE 20 MG TAB PO SCH (09:00)
[2018-01-25] MEDS: AZITHROMYCIN 250 MG TAB PO SCH (09:43)
[2018-01-25] MEDS: PANTOPRAZOLE SODIUM 40 MG ECT PO SCH (09:44)
[2018-01-25] MEDS: FUROSEMIDE 40 MG SOL IV SCH ×2 (09:44→13:37)
[2018-01-25] MEDS: IBUPROFEN 600 MG TAB PO PRN ×2 (13:26→21:37)
[2018-01-25 16:28] LABS: CALCIUM 8.6 mg/dl (8.5-10.1); CARBON DIOXIDE 33.2 mEq/L (21-32); CREATININE 0.84 mg/dl (0.60-1.00); POTASSIUM 3.6 mMol/L (3.5-5.1)
[2018-01-25] MEDS ORDERED: FUROSEMIDE 20mg SOL IV ONE (16:55)
[2018-01-25] MEDS ORDERED: POTASSIUM CHLORIDE 10 MEQ TER PO SCH (17:00)
[2018-01-25] MEDS: TRAZODONE HYDROCHLORIDE 50 MG TAB PO SCH (20:48)
[2018-01-25] MEDS: ATORVASTATIN 10 MG TAB PO SCH (20:49)
[2018-01-25] MEDS: MONTELUKAST SODIUM 10 MG TAB PO SCH (20:50)
[2018-01-25] MEDS ORDERED: FUROSEMIDE 20mg SOL IV SCH (21:00)
[2018-01-26] MEDS: SODIUM CHLORIDE 0.9% FLUSH 10 ML SOL IV SCH ×3 (02:14→15:13)
[2018-01-26] MEDS: ALBUTEROL/IPRATROPIUM 1 VIAL SOL INH SCH ×5 (02:14→20:36)
[2018-01-26] MEDS: SOLUMEDROL 125 MG/2 ML 125 MG/2 ML PDS IV SCH (04:59)
[2018-01-26] MEDS: PANTOPRAZOLE SODIUM 40 MG ECT PO SCH (06:32)
[2018-01-26 07:21] LABS: CALCIUM 8.7 mg/dl (8.5-10.1); CREATININE 0.87 mg/dl (0.60-1.00)
[2018-01-26 07:26] LABS: CARBON DIOXIDE 31.4 mEq/L (21-32)
[2018-01-26 07:31] LABS: BASOPHILS % (AUTO) 0 % (0-3); EOSINOPHILS % (AUTO) 0 % (0-9); HEMATOCRIT 38 % (35-47); LYMPHOCYTES % (AUTO) 4.5 % (10-50); MEAN CORPUSCULAR HEMOGLOBIN 27.9 pg (27.0-32.0); MEAN CORPUSCULAR HGB CONC 31.8 gm/dl (32.0-36.0); MEAN CORPUSCULAR VOLUME 88 fL (81-99); MONOCYTES % (AUTO) 1.7 % (0-12); NEUTROPHILS % (AUTO) 93.5 % (37-80)
[2018-01-26] MEDS: BUDESONIDE 0.5 MG/2 ML AMPUL.NEB INH SCH ×2 (08:03→20:42)
[2018-01-26] MEDS: HYDRALAZINE HYDROCHLORIDE 10 MG TAB PO SCH ×2 (09:12→20:42)
[2018-01-26] MEDS: IBUPROFEN 600 MG TAB PO PRN ×2 (09:12→17:48)
[2018-01-26] MEDS: SERTRALINE HYDROCHLORIDE 50 MG TAB PO SCH (09:15)
[2018-01-26] MEDS: LOSARTAN POTASSIUM 50 MG TAB PO SCH (09:15)
[2018-01-26] MEDS ORDERED: FUROSEMIDE 40 MG TAB ONE (09:46)
[2018-01-26] MEDS: PREDNISONE 20 MG TAB PO SCH (10:50)
[2018-01-26] MEDS: FUROSEMIDE 40 MG TAB PO SCH ×2 (10:50→14:25)
[2018-01-26] MEDS: AZITHROMYCIN 200 MG/5 ML BOTTLE PO SCH (10:50)
[2018-01-26] MEDS: SALINE SPRAY NAS PRN ×2 (14:25→17:48)
[2018-01-26] MEDS: ATORVASTATIN 10 MG TAB PO SCH (20:43)
[2018-01-26] MEDS: TRAZODONE HYDROCHLORIDE 50 MG TAB PO SCH (20:43)
[2018-01-26] MEDS: MONTELUKAST SODIUM 10 MG TAB PO SCH (20:44)
[2018-01-27] MEDS: ALBUTEROL/IPRATROPIUM 1 VIAL SOL INH SCH ×5 (02:14→20:45)
[2018-01-27] MEDS: AZITHROMYCIN 250 MG TAB PO SCH (02:35)
[2018-01-27] MEDS: SODIUM CHLORIDE 0.9% FLUSH 10 ML SOL IV SCH ×4 (03:07→22:48)
[2018-01-27] MEDS: PANTOPRAZOLE SODIUM 40 MG ECT PO SCH (07:48)
[2018-01-27] MEDS: BUDESONIDE 0.5 MG/2 ML AMPUL.NEB INH SCH ×2 (08:16→20:45)
[2018-01-27] MEDS: LOSARTAN POTASSIUM 50 MG TAB PO SCH (09:49)
[2018-01-27] MEDS: HYDRALAZINE HYDROCHLORIDE 10 MG TAB PO SCH ×2 (09:49→20:41)
[2018-01-27] MEDS: FUROSEMIDE 40 MG TAB PO SCH ×2 (09:50→13:57)
[2018-01-27] MEDS: PREDNISONE 20 MG TAB PO SCH (09:50)
[2018-01-27] MEDS: SERTRALINE HYDROCHLORIDE 50 MG TAB PO SCH (09:51)
[2018-01-27] MEDS: AZITHROMYCIN 200 MG/5 ML BOTTLE PO SCH (09:54)
[2018-01-27] MEDS: SALINE SPRAY NAS PRN ×2 (09:55→20:49)
[2018-01-27 13:49] LABS: CALCIUM 8.7 mg/dl (8.5-10.1); CARBON DIOXIDE 31.2 mEq/L (21-32); CREATININE 0.86 mg/dl (0.60-1.00); POTASSIUM 3.6 mMol/L (3.5-5.1)
[2018-01-27] MEDS: MONTELUKAST SODIUM 10 MG TAB PO SCH (20:41)
[2018-01-27] MEDS: TRAZODONE HYDROCHLORIDE 50 MG TAB PO SCH (20:41)
[2018-01-27] MEDS: ATORVASTATIN 10 MG TAB PO SCH (20:41)
[2018-01-27] MEDS: IBUPROFEN 600 MG TAB PO PRN (20:55)
[2018-01-28] MEDS: ALBUTEROL/IPRATROPIUM 1 VIAL SOL INH SCH ×4 (03:19→21:19)
[2018-01-28] MEDS: PANTOPRAZOLE SODIUM 40 MG ECT PO SCH (06:05)
[2018-01-28] MEDS: SODIUM CHLORIDE 0.9% FLUSH 10 ML SOL IV SCH ×3 (06:15→22:59)
[2018-01-28 07:19] LABS: CALCIUM 8.6 mg/dl (8.5-10.1); CREATININE 0.8 mg/dl (0.60-1.00); POTASSIUM 3.4 mMol/L (3.5-5.1)
[2018-01-28 07:20] LABS: CARBON DIOXIDE 35.7 mEq/L (21-32)
[2018-01-28 07:21] LABS: BASOPHILS % (AUTO) 1 % (0-3); EOSINOPHILS % (AUTO) 1 % (0-9); HEMATOCRIT 39 % (35-47); HEMOGLOBIN 12.2 gm/dl (12.0-15.5); LYMPHOCYTES % (AUTO) 20.5 % (10-50); MEAN CORPUSCULAR HEMOGLOBIN 27.4 pg (27.0-32.0); MEAN CORPUSCULAR HGB CONC 31.2 gm/dl (32.0-36.0); MEAN CORPUSCULAR VOLUME 88 fL (81-99); MONOCYTES % (AUTO) 5.4 % (0-12); NEUTROPHILS % (AUTO) 72.4 % (37-80)
[2018-01-28] MEDS: HYDRALAZINE HYDROCHLORIDE 10 MG TAB PO SCH ×2 (09:02→21:20)
[2018-01-28] MEDS: SERTRALINE HYDROCHLORIDE 50 MG TAB PO SCH (09:02)
[2018-01-28] MEDS: BUDESONIDE 0.5 MG/2 ML AMPUL.NEB INH SCH ×2 (09:04→21:21)
[2018-01-28] MEDS: FUROSEMIDE 40 MG TAB PO SCH ×2 (09:04→14:11)
[2018-01-28] MEDS: LOSARTAN POTASSIUM 50 MG TAB PO SCH (09:05)
[2018-01-28] MEDS: PREDNISONE 20 MG TAB PO SCH (09:05)
[2018-01-28] MEDS: AZITHROMYCIN 200 MG/5 ML BOTTLE PO SCH (09:06)
[2018-01-28] MEDS: SALINE SPRAY NAS PRN (09:07)
[2018-01-28] MEDS: ALBUTEROL NEB SOL 2.5MG/3ML 1 VIAL SOL NEB PRN (11:51)
[2018-01-28] MEDS ORDERED: FUROSEMIDE 40 MG TAB PO ONE (12:00)
[2018-01-28 21:19] VITALS: O2SAT 90
[2018-01-28] MEDS: TRAZODONE HYDROCHLORIDE 50 MG TAB PO SCH (21:21)
[2018-01-28] MEDS: ATORVASTATIN 10 MG TAB PO SCH (21:23)
[2018-01-28] MEDS: MONTELUKAST SODIUM 10 MG TAB PO SCH (21:23)
[2018-01-28] MEDS: POTASSIUM CHLORIDE 10 MEQ TER PO SCH (21:28)
[2018-01-28] MEDS: IBUPROFEN 600 MG TAB PO PRN (21:31)
[2018-01-29] MEDS: ALBUTEROL/IPRATROPIUM 1 VIAL SOL INH SCH ×2 (03:13→08:00)
[2018-01-29] MEDS: SODIUM CHLORIDE 0.9% FLUSH 10 ML SOL IV SCH (06:15)
[2018-01-29] MEDS: PANTOPRAZOLE SODIUM 40 MG ECT PO SCH (06:15)
[2018-01-29 07:41] LABS: BASOPHILS % (AUTO) 1 % (0-3); EOSINOPHILS % (AUTO) 1 % (0-9); HEMATOCRIT 39 % (35-47); HEMOGLOBIN 12.4 gm/dl (12.0-15.5); MEAN CORPUSCULAR HEMOGLOBIN 27.7 pg (27.0-32.0); MEAN CORPUSCULAR HGB CONC 31.9 gm/dl (32.0-36.0); MEAN CORPUSCULAR VOLUME 87 fL (81-99); MONOCYTES % (AUTO) 5.2 % (0-12); NEUTROPHILS % (AUTO) 68.9 % (37-80)
[2018-01-29 07:49] VITALS: BP 131/79; PULSE 75; RESP 22; TEMP 97.9
[2018-01-29 07:51] LABS: CALCIUM 8.3 mg/dl (8.5-10.1); CARBON DIOXIDE 35.9 mEq/L (21-32); CREATININE 0.86 mg/dl (0.60-1.00); POTASSIUM 3.3 mMol/L (3.5-5.1)
[2018-01-29] MEDS: LOSARTAN POTASSIUM 50 MG TAB PO SCH (08:01)
[2018-01-29] MEDS: FUROSEMIDE 40 MG TAB PO SCH (08:01)
[2018-01-29] MEDS: SERTRALINE HYDROCHLORIDE 50 MG TAB PO SCH (08:01)
[2018-01-29] MEDS: AZITHROMYCIN 200 MG/5 ML BOTTLE PO SCH (08:01)
[2018-01-29] MEDS: BUDESONIDE 0.5 MG/2 ML AMPUL.NEB INH SCH (08:01)
[2018-01-29] MEDS: PREDNISONE 20 MG TAB PO SCH (08:01)
[2018-01-29] MEDS: HYDRALAZINE HYDROCHLORIDE 10 MG TAB PO SCH (08:02)
[2018-01-29] MEDS: SALINE SPRAY NAS PRN (08:13)
[2018-01-29] MEDS: POTASSIUM CHLORIDE 10 MEQ TER PO SCH (08:13)
[2018-01-29] MEDS ORDERED: POTASSIUM CHLORIDE 10 MEQ TER PO ONE (10:20)
== END 2018-01-29 13:45 | disposition home or self-care (01) | DRG 144 ==
LOC: ED 13:56 → UNDOADMIN 19:00 → ACUTE CARE 19:00
PROVIDERS: ADMIT Family Medicine; ATTEND Family Medicine
PROC: F01L0FZ Muscle Performance Assessment of Musculoskeletal System - Lower Back / Lower Extremity using Assistive, Adaptive, Supportive or Protective Equipment (ICD-10-PCS; principal; 2018-01-28)
PROC: F01ZBZZ Bed Mobility Assessment (ICD-10-PCS; 2018-01-28)
DX: R06.02 Shortness of breath (principal); J47.1 Bronchiectasis with (acute) exacerbation; J45.41 Moderate persistent asthma with (acute) exacerbation; R05 Cough; R09.02 Hypoxemia; J44.1 Chronic obstructive pulmonary disease with (acute) exacerbation; I10 Essential (primary) hypertension; R60.9 Edema, unspecified; E87.6 Hypokalemia; G47.33 Obstructive sleep apnea (adult) (pediatric); J47.9 Bronchiectasis, uncomplicated
CPT/HCPCS: 36415; 71045; 80048; 80053; 82962; 83880; 85025; 87040; 93005; 94150; 94640; 94664; 94762; 96365; 96366; 96374; 99284; 99285; J0456; J1940; J2930; J7613; A6232; A9270; A9270-GY

== ENCOUNTER 2018-05-02 18:00 | Inpatient (IN) | payer BC ==
[2018-05-02] MEDS ORDERED: ALBUTEROL/IPRATROPIUM 1 VIAL SOL INH ONE (18:33)
[2018-05-02] MEDS ORDERED: SOLUMEDROL 125 MG/2 ML 125 MG/2 ML PDS IV ONE (18:39)
[2018-05-02] MEDS ORDERED: SOLUMEDROL 125 MG/2 ML 125 MG/2 ML PDS ONE (18:49)
[2018-05-02] MEDS ORDERED: ALBUTEROL/IPRATROPIUM 1 VIAL SOL ONE (18:49)
[2018-05-02 18:57] LABS: BASOPHILS % (AUTO) 1 % (0-3); EOSINOPHILS % (AUTO) 3 % (0-9); HEMATOCRIT 34 % (35-47); LYMPHOCYTES % (AUTO) 14.6 % (10-50); MEAN CORPUSCULAR HEMOGLOBIN 28.5 pg (27.0-32.0); MEAN CORPUSCULAR HGB CONC 32.7 gm/dl (32.0-36.0); MEAN CORPUSCULAR VOLUME 87 fL (81-99); MONOCYTES % (AUTO) 5.7 % (0-12); NEUTROPHILS % (AUTO) 75.7 % (37-80)
[2018-05-02] MEDS: SODIUM CHLORIDE 0.9% FLUSH 10 ML SOL IV PRN (19:07)
[2018-05-02 19:08] LABS: LACTIC ACID 1.2 mMol/L (0.0-2.0)
[2018-05-02 19:12] LABS: ALBUMIN 3.1 gm/dl (3.4-5.0); ALKALINE PHOSPHATASE 80 IU/L (46-116); ALT 24 IU/L (14-63); AST 21 IU/L (15-37); BILIRUBIN,TOTAL 0.3 mg/dl (0.2-1.0); BLOOD UREA NITROGEN 10 mg/dl (7-18); CALCIUM 8.5 mg/dl (8.5-10.1); CARBON DIOXIDE 33.6 mEq/L (21-32); CHLORIDE 103 mMol/L (98-107); GLUCOSE 106 mg/dl (74-106); POTASSIUM 3.2 mMol/L (3.5-5.1); SODIUM 142 mMol/L (136-145); TOTAL PROTEIN 6.7 gm/dl (6.4-8.2); TROP I < 0.017 ng/ml (0.000-0.056)
[2018-05-02 19:46] LABS: INFLUENZA A NEGATIVE (NEGATIVE); INFLUENZA B NEGATIVE (NEGATIVE)
[2018-05-02] MEDS ORDERED: FUROSEMIDE 40 MG SOL IV SCH (20:15)
[2018-05-02] MEDS ORDERED: SOLUMEDROL 125 MG/2 ML 125 MG/2 ML PDS IV SCH (20:15)
[2018-05-02] MEDS ORDERED: BUDESONIDE 0.5 MG INH SCH (21:00)
[2018-05-02] MEDS ORDERED: PIPERACILLIN/TAZOBACT 3.375 GM PDS IV ONE (21:17)
[2018-05-02] MEDS ORDERED: SODIUM CHLORIDE 0.9% 100 ML 100 ML IV ONE (21:17)
[2018-05-02] MEDS: PIPERACILLIN/TAZOBACT 3.375 GM 3.375 GM in SODIUM CHLORIDE 0.9% 100 ML 100 ML IV SCH (21:32)
[2018-05-02] MEDS: POTASSIUM CHLORIDE 10 MEQ TER PO SCH ×2 (21:34)
[2018-05-02] MEDS: ATORVASTATIN 10 MG TAB PO SCH (21:34)
[2018-05-02] MEDS: MONTELUKAST SODIUM 10 MG TAB PO SCH (21:35)
[2018-05-02] MEDS: HYDRALAZINE HYDROCHLORIDE 10 MG TAB PO SCH (21:35)
[2018-05-02] MEDS: TRAZODONE HYDROCHLORIDE 50 MG TAB PO SCH (21:43)
[2018-05-02] MEDS: ENOXAPARIN 40 MG SOL SC SCH (21:51)
[2018-05-02] MEDS: ALBUTEROL/IPRATROPIUM 1 VIAL SOL INH SCH (22:22)
[2018-05-02] MEDS: BUDESONIDE 0.5 MG/2 ML AMPUL.NEB INH SCH (22:35)
[2018-05-03] MEDS: POTASSIUM CHLORIDE 10 MEQ TER PO SCH ×3 (00:23→20:28)
[2018-05-03] MEDS: SOLUMEDROL 125 MG/2 ML 125 MG/2 ML PDS IV SCH ×2 (00:24→06:31)
[2018-05-03] MEDS ORDERED: SODIUM CHLORIDE 0.9% 100 ML 100 ML IV ONE (02:47)
[2018-05-03] MEDS ORDERED: PIPERACILLIN/TAZOBACT 3.375 GM PDS IV ONE (02:47)
[2018-05-03] MEDS: PIPERACILLIN/TAZOBACT 3.375 GM 3.375 GM in SODIUM CHLORIDE 0.9% 100 ML 100 ML IV SCH (03:05)
[2018-05-03] MEDS: SODIUM CHLORIDE 0.9% FLUSH 10 ML SOL IV SCH ×3 (03:09→18:05)
[2018-05-03] MEDS: ALBUTEROL NEB SOL 2.5MG/3ML 1 VIAL SOL NEB PRN (03:46)
[2018-05-03] MEDS: SODIUM CHLORIDE 0.9% FLUSH 10 ML SOL IV PRN ×4 (06:31→20:55)
[2018-05-03] MEDS: PANTOPRAZOLE SODIUM 40 MG ECT PO SCH (06:31)
[2018-05-03 07:17] LABS: CALCIUM 8.5 mg/dl (8.5-10.1); CREATININE 0.79 mg/dl (0.60-1.00)
[2018-05-03 07:26] LABS: BASOPHILS % (AUTO) 0 % (0-3); EOSINOPHILS % (AUTO) 0 % (0-9); HEMATOCRIT 35 % (35-47); HEMOGLOBIN 11.5 gm/dl (12.0-15.5); LYMPHOCYTES % (AUTO) 6.5 % (10-50); MEAN CORPUSCULAR HEMOGLOBIN 28.4 pg (27.0-32.0); MEAN CORPUSCULAR HGB CONC 32.4 gm/dl (32.0-36.0); MEAN CORPUSCULAR VOLUME 88 fL (81-99); MONOCYTES % (AUTO) 0.6 % (0-12); NEUTROPHILS % (AUTO) 92.7 % (37-80)
[2018-05-03] MEDS: HYDRALAZINE HYDROCHLORIDE 10 MG TAB PO SCH ×2 (08:54→20:25)
[2018-05-03] MEDS: SERTRALINE HYDROCHLORIDE 50 MG TAB PO SCH (08:55)
[2018-05-03] MEDS: AZITHROMYCIN 250 MG TAB PO SCH (08:56)
[2018-05-03] MEDS: BUDESONIDE 0.5 MG/2 ML AMPUL.NEB INH SCH ×2 (08:57→20:22)
[2018-05-03] MEDS: ALBUTEROL/IPRATROPIUM 1 VIAL SOL INH SCH ×4 (08:57→20:22)
[2018-05-03] MEDS ORDERED: ENOXAPARIN 40 MG SOL SC SCH (09:00)
[2018-05-03] MEDS ORDERED: LISINOPRIL 20 MG TAB PO SCH (09:00)
[2018-05-03] MEDS ORDERED: OMEPRAZOLE 20 MG CAPSULE PO SCH (09:00)
[2018-05-03] MEDS: FUROSEMIDE 40 MG SOL IV SCH ×2 (09:03→14:25)
[2018-05-03] MEDS: LOSARTAN POTASSIUM 50 MG TAB PO SCH (09:41)
[2018-05-03] MEDS: PREDNISONE 20 MG TAB PO SCH (09:41)
[2018-05-03] MEDS ORDERED: IBUPROFEN 600 MG TAB PO PRN (15:25)
[2018-05-03] MEDS ORDERED: AMLODIPINE 5 MG TAB PO ONE (16:00)
[2018-05-03] MEDS: TRAZODONE HYDROCHLORIDE 50 MG TAB PO SCH (20:26)
[2018-05-03] MEDS: ATORVASTATIN 10 MG TAB PO SCH (20:27)
[2018-05-03] MEDS: MONTELUKAST SODIUM 10 MG TAB PO SCH (20:28)
[2018-05-03] MEDS: ENOXAPARIN 40 MG SOL SC SCH (20:31)
[2018-05-04] MEDS: SODIUM CHLORIDE 0.9% FLUSH 10 ML SOL IV SCH ×2 (00:59→09:09)
[2018-05-04] MEDS: PANTOPRAZOLE SODIUM 40 MG ECT PO SCH (06:17)
[2018-05-04] MEDS: ALBUTEROL NEB SOL 2.5MG/3ML 1 VIAL SOL NEB PRN (06:34)
[2018-05-04 07:19] LABS: BASOPHILS % (AUTO) 0 % (0-3); EOSINOPHILS % (AUTO) 0 % (0-9); HEMATOCRIT 37 % (35-47); HEMOGLOBIN 11.5 gm/dl (12.0-15.5); LYMPHOCYTES % (AUTO) 7.1 % (10-50); MEAN CORPUSCULAR HEMOGLOBIN 27.9 pg (27.0-32.0); MEAN CORPUSCULAR VOLUME 90 fL (81-99); NEUTROPHILS % (AUTO) 88.7 % (37-80)
[2018-05-04 07:31] LABS: CALCIUM 8.9 mg/dl (8.5-10.1); CARBON DIOXIDE 33.5 mEq/L (21-32); CREATININE 0.75 mg/dl (0.60-1.00); POTASSIUM 3.9 mMol/L (3.5-5.1)
[2018-05-04] MEDS: HYDRALAZINE HYDROCHLORIDE 10 MG TAB PO SCH (08:17)
[2018-05-04] MEDS: AZITHROMYCIN 250 MG TAB PO SCH (08:17)
[2018-05-04] MEDS: PREDNISONE 20 MG TAB PO SCH (08:18)
[2018-05-04] MEDS: POTASSIUM CHLORIDE 10 MEQ TER PO SCH (08:18)
[2018-05-04] MEDS: SERTRALINE HYDROCHLORIDE 50 MG TAB PO SCH (08:18)
[2018-05-04] MEDS: LOSARTAN POTASSIUM 50 MG TAB PO SCH (08:19)
[2018-05-04 08:28] VITALS: TEMP 97.5
[2018-05-04] MEDS ORDERED: AMLODIPINE 5 MG TAB PO SCH (09:00)
[2018-05-04] MEDS: ALBUTEROL/IPRATROPIUM 1 VIAL SOL INH SCH ×2 (09:10→13:17)
[2018-05-04] MEDS: BUDESONIDE 0.5 MG/2 ML AMPUL.NEB INH SCH (09:17)
[2018-05-04] MEDS: FUROSEMIDE 20 MG TAB PO SCH ×2 (09:52→13:19)
[2018-05-04 13:20] VITALS: RESP 22
[2018-05-04 13:29] VITALS: PULSE 83; O2SAT 96
[2018-05-04 13:49] VITALS: BP 133/68
== END 2018-05-04 14:30 | disposition home or self-care (01) | DRG 140 ==
LOC: ED 18:00 → UNDOADMIN 19:58 → ACUTE CARE 19:58
PROVIDERS: ADMIT Family Medicine; ATTEND Family Medicine
DX: J44.1 Chronic obstructive pulmonary disease with (acute) exacerbation (principal); J47.1 Bronchiectasis with (acute) exacerbation; R73.03 Prediabetes; R60.9 Edema, unspecified; E87.6 Hypokalemia; I10 Essential (primary) hypertension; R06.02 Shortness of breath
CPT/HCPCS: 36415; 71046; 80048; 80053; 83880; 84484; 85025; 85378; 87040; 87804; 93005; 94150; 94640; 94669; 94760; 96374; 99222; 99284; J1650; J1940; J2543; J2930; J7613; A9270-GY

== ENCOUNTER 2018-11-08 13:41 | Emergency (ER) | payer BC ==
[2018-11-08 15:01] VITALS: BP 148/73; PULSE 98; RESP 24; TEMP 98.1; O2SAT 97
== END 2018-11-08 16:20 | disposition home or self-care (01) ==
LOC: ED 13:41
DX: M25.562 Pain in left knee (principal); M25.462 Effusion, left knee
CPT/HCPCS: 99282; 99283